=== PATIENT | male | born 1975 | race Caucasian/White ===

== ENCOUNTER 2021-09-07 08:22 | Outpatient (CLI) | payer OTHER ==
--- NOTE | 2021-09-07 09:23 | CT Report ---
PROCEDURE: Abdomen/Pelvis WO INDICATIONS: RIGHT FLANK PAIN TECHNIQUE: Noncontrast 5 mm thick sections acquired from the diaphragms to the symphysis. 5 mm coronal and sagi ttal reformats were then performed. For radiation dose reduction, the following was used: automated exposure control, adjustment of mA and/or kV according to patient size. COMPARISON: None. FINDINGS: Inferior chest: No focal consolidation, pleural effusion, or pneumothorax. No cardiomegaly or perica rdial effusion. Gallbladder: The gallbladder is distended with a smooth wall. Biliary tree: No intra-or extrahepatic biliary ductal dilatation. Liver: The liver demonstrates normal appearance. Spleen: Normal size and morphology is seen. Pancreas: Normal morphology without masses or inflammatory changes. Adrenals: Normal size without masses. Kidneys: Normal size and morphology. No contour deforming solid masses or evidence of obstructive uro marifer. Vasculature: No evidence of aneurysm or other significant vascular pathology. Lymphatic system: No pathologic enlargement by size criteria. Bowel: No intestinal obstruction. Normal appendix. Peritoneum/Retroperitoneum: No free intraperitoneal gas or large collection. Urinary bladder: The urinary bladder is distended with a smooth thin wall. Pelvic organs: No significant abnormality. The prostate is not well delineated. Bones/soft tissues: No significant abnormality. IMPRESSION: 1.No acute intra-abdominal/pelvic abnormality. Reviewed by: Steven Centeno MD on 09/07/2021 9:[address] [facility] Approved by: Steven Centeno MD on 09/07/2021 9:[address] [facility] Station ID: [id number]
== END 2021-09-07 08:23 | disposition home or self-care (01) ==
LOC: DI 08:22
PROVIDERS: ATTEND Student in an Organized Health Care Education/Training Program
DX: R10.9 Unspecified abdominal pain (principal); R39.15 Urgency of urination; R39.12 Poor urinary stream

== ENCOUNTER 2022-05-25 12:22 | Outpatient (CLI) | payer OTHER ==
--- NOTE | 2022-05-25 18:50 | XRAY Report ---
PROCEDURE: Chest 2 View X-Ray INDICATIONS: CHEST PAIN TECHNIQUE: 2 view(s) of the chest. COMPARISON: None. FINDINGS: Surgical changes and devices: None. Lungs and pleura: No pleural effusions or pneumothorax. Lungs are clear. Mediastinum: Mediastinal contours are normal. Heart size is normal. Bones and chest wall: No suspicious bony abnormalities. Soft tissues appear unremarkable. IMPRESSION: No acute cardiopulmonary process is seen. Reviewed by: Cedric Anderson MD on 05/25/2022 5:48 PM [facility] Approved by: Cedric Anderson MD on 05/25/2022 5:48 PM [facility] Station ID: [id number]
== END 2022-05-25 12:23 | disposition home or self-care (01) ==
LOC: DI 12:22
PROVIDERS: ATTEND Student in an Organized Health Care Education/Training Program
DX: R07.9 Chest pain, unspecified (principal); R10.11 Right upper quadrant pain
CPT/HCPCS: 71046; 74177; Q9963; Q9967

== ENCOUNTER 2022-05-25 12:25 | Outpatient (CLI) | payer OTHER ==
[2022-05-25] MEDS ORDERED: DIATRIZOATE MEGLU/DIATRIZO SOD 30 ML BOTTLE PO ONE ×2 (12:45→13:44)
--- NOTE | 2022-05-25 18:43 | CT Report ---
PROCEDURE: Abdomen/Pelvis W INDICATIONS: RUQ PAIN CONTRAST: IV CONTRAST: Optiray 320 ml: 100 PO CONTRAST: Redi-Cat ml30 TECHNIQUE: After the administration of IV and oral contrast, 5 mm thick sections acquired from the diaphragms to the symphysis. 5 mm thick coronal and sagittal reformats were acquired. For radiation dose reducti on, the following was used: automated exposure control, adjustment of mA and/or kV according to tosha ent size. COMPARISON: 09/07/2021. Correlation is made with the accompanying chest radiograph, 05/25/2022 FINDINGS: Image quality: Excellent. ABDOMEN: Lung bases: Lung bases are clear. Heart size is normal. Solid organs: Diffuse fatty liver infiltration can be seen. The liver demonstrates normal size demo nstrates no focal lesions. The spleen demonstrates normal size and demonstrates no suspicious lesions. Gallbladder wall does not appear thickened. No peripancreatic inflammatory changes are seen. Biliar y system is non dilated. Pancreas enhances normally. No adrenal nodules. Kidneys demonstrate normal size and enhancement, wi thout hydronephrosis. A normal appendix is seen. Peritoneum and bowel: Bowel loops demonstrate normal wall thickness and caliber. No free fluid or a ir. Nodes and vessels: No retroperitoneal or mesenteric adenopathy by size criteria. Aorta and inferior vena cava are normal in size. Miscellaneous: No ventral hernias. PELVIS: Genitourinary: Bladder wall thickness is normal. Miscellaneous: No inguinal hernias or adenopathy. Bones: No suspicious bony lesions. No vertebral body compression fractures. L5 pars defects are se en, with minimal grade 1 L5-S1 anterolisthesis IMPRESSION: Normal appearing gallbladder by CT, without gallbladder wall thickening or biliary dilatation. Incidental note is made of: Fatty liver infiltration Normal appendix L5 pars defects Minimal L5-S1 anterolisthesis Reviewed by: Cedric Anderson MD on 05/25/2022 5:42 PM [facility] Approved by: Cedric Anderson MD on 05/25/2022 5:42 PM [facility] Station ID: [id number]
== END 2022-05-25 12:26 | disposition home or self-care (01) ==
LOC: DI 12:25
PROVIDERS: ATTEND Student in an Organized Health Care Education/Training Program
DX: R07.9 Chest pain, unspecified (principal); R10.11 Right upper quadrant pain